=== PATIENT | female | born 1945 | race African-American/Black ===

== ENCOUNTER 2017-10-19 21:10 | Inpatient (IN) | payer MEDICARE, MEDICAID ==
[~2017-10-19] VITALS: Ht 170.2 cm; Wt 104.8 kg
[~2017-10-19 21:10] MED LIST: ACET-2178 PO; ALBU6.7H INH; ASPI-1159 PO; BENA40TA9 PO; ESOM40CA PO; FURO-151 PO; GABA-531 PO; METO25TA6 PO; MONT10TA24 PO; NIFE30TA8 PO; SPIR25TA6 PO
[2017-10-19] MEDS ORDERED: PANTOPRAZOLE SODIUM 40 MG/VIAL IV STA (21:50)
[2017-10-19] MEDS ORDERED: FAMOTIDINE 20MG/2ML VIAL IV STA (21:50)
[2017-10-19] MEDS ORDERED: OCTREOTIDE ACETATE 50 MCG/ML 1ML IV STA (21:50)
[2017-10-19 23:10] LABS: BASOPHILS % 0.6 % (0.0-2.0); EOSINOPHILS % 0.5 % (0.0-5.0); HEMATOCRIT. 33.4 % (36.0-48.0); HEMOGLOBIN. 11.2 g/dL (12.0-16.0); LYMPHOCYTES % 20.4 % (20.0-50.0); MEAN CORPUSCULAR HEMOGLOBIN 34.1 pg (28.0-32.0); MEAN CORPUSCULAR VOLUME 101.8 fL (81.0-99.0); MEAN PLATELET VOLUME 8.2 fl (7.4-10.4); MONOCYTES % 11.9 % (2.0-8.0); NEUTROPHILS % 66.6 % (40.0-76.0); PLATELET 289 x1000/uL (130-400); RED BLOOD CELL COUNT 3.28 mill/uL (4.2-5.4); RED CELL DISTRIBUTION WIDTH 14.8 % (11.6-14.6)
[2017-10-19 23:16] LABS: CHLORIDE 100 mEq/L (98-107); INR 1.1
[2017-10-20 07:10] LABS: CLARITY URINE CLOUDY (CLEAR); COLOR URINE YELLOW (YELLOW); KETONES URINE TRACE (NEGATIVE); LEUKOCYTE ESTERASE URINE 2+ (NEGATIVE); NITRITE URINE NEGATIVE (NEGATIVE); OCCULT BLOOD URINE NEGATIVE (NEGATIVE); PROTEIN URINE NEGATIVE (NEGATIVE); SPECIFIC GRAVITY URINE 1.021 (1.005-1.030); UROBILINOGEN URINE 0.2 E.U./dL (0.2-1.0)
[2017-10-20 08:30] VITALS: BP 150/90
[2017-10-20] MEDS ORDERED: MORPHINE SULFATE 4 MG/ML CPJ (NOT FOR IM USE) IV PRN (11:00)
[2017-10-20] MEDS ORDERED: PANTOPRAZOLE SODIUM 40 MG/VIAL IV SCH (11:00)
[2017-10-20 12:28] LABS: HEMATOCRIT 35.7 % (36.0-48.0); HEMOGLOBIN 11.9 g/dL (12.0-16.0); MEAN CORPUSCULAR HEMOGLOBIN 34.1 pg (28.0-32.0); MEAN CORPUSCULAR VOLUME 102.5 fL (81.0-99.0); PLATELET 288 x1000/uL (130-400); RED BLOOD CELL COUNT 3.48 mill/uL (4.2-5.4); RED CELL DISTRIBUTION WIDTH 14.7 % (11.6-14.6)
[2017-10-20 12:53] LABS: CHLORIDE 101 mEq/L (98-107)
[2017-10-20] MEDS ORDERED: ONDANSETRON HCL 4MG/2ML INJ IV PRN (13:45)
[2017-10-20] MEDS ORDERED: ACETAMINOPHEN 500MG TABLET PO PRN (15:15)
[2017-10-20] MEDS ORDERED: ALBUTEROL (0.083%) 2.5MG/3ML NEB INH PRN (15:15)
[2017-10-20 16:00] VITALS: BP 125/83
[2017-10-20] MEDS: MONTELUKAST SODIUM 10MG TABLET PO SCH (17:06)
[2017-10-20] MEDS: NIFEDIPINE XL 60MG TAB PO SCH ×2 (17:06→21:14)
[2017-10-20] MEDS ORDERED: FUROSEMIDE 40MG TABLET PO SCH (17:15)
[2017-10-20] MEDS: SUCRALFATE 1G TABLET PO SCH ×2 (19:18→21:13)
[2017-10-20 20:24] VITALS: BP 150/77
[2017-10-20] MEDS: METOPROLOL TARTRATE 25MG TABLET PO SCH (21:14)
[2017-10-20] MEDS: PANTOPRAZOLE SODIUM 40 MG/VIAL IV SCH (21:15)
[2017-10-21] VITALS (7 sets, daily range): BP systolic 98–135; BP diastolic 66–85
[2017-10-21] MEDS: LEVOFLOXACIN 500MG PREMIX 100 ML IV SCH ×2 (05:34→22:23)
[2017-10-21 07:03] LABS: HEMOGLOBIN. 11.1 g/dL (12.0-16.0); MEAN CORPUSCULAR HEMOGLOBIN 33.4 pg (28.0-32.0); MEAN PLATELET VOLUME 7.9 fl (7.4-10.4); PLATELET 289 x1000/uL (130-400); RED BLOOD CELL COUNT 3.33 mill/uL (4.2-5.4)
[2017-10-21 07:44] LABS: TOTAL IRON BINDING CAPACITY 221 ug/dL (250-450)
[2017-10-21] MEDS: SUCRALFATE 1G TABLET PO SCH ×4 (07:48→20:58)
[2017-10-21] MEDS: PANTOPRAZOLE SODIUM 40 MG/VIAL IV SCH ×2 (09:06→20:59)
[2017-10-21] MEDS: GABAPENTIN 300MG CAPSULE PO SCH (09:07)
[2017-10-21] MEDS: SPIRONOLACTONE 25MG TABLET PO SCH (09:07)
[2017-10-21] MEDS: METOPROLOL TARTRATE 25MG TABLET PO SCH ×2 (09:08→20:59)
[2017-10-21] MEDS: ASPIRIN 81MG EC TABLET PO SCH (09:08)
[2017-10-21] MEDS: NIFEDIPINE XL 60MG TAB PO SCH ×2 (09:08→21:06)
[2017-10-21] MEDS ORDERED: MIDAZOLAM HCL 5 MG/5 ML VIAL ONE (11:45)
[2017-10-21] MEDS ORDERED: FENTANYL CITRATE/PF 50MCG/ML 2ML VIAL ONE (11:45)
[2017-10-21 15:30] LABS: ATYPICAL LYMPHOCYTES 1; PLATELET ESTIMATE NORMAL
[2017-10-21] MEDS: MONTELUKAST SODIUM 10MG TABLET PO SCH (17:05)
[2017-10-22 04:00] VITALS: BP 126/69
[2017-10-22 05:33] LABS: HEMOGLOBIN. 11.4 g/dL (12.0-16.0); MEAN CORPUSCULAR HEMOGLOBIN 34.1 pg (28.0-32.0); MEAN CORPUSCULAR VOLUME 102.3 fL (81.0-99.0); MEAN PLATELET VOLUME 8.3 fl (7.4-10.4); PLATELET 285 x1000/uL (130-400); RED BLOOD CELL COUNT 3.33 mill/uL (4.2-5.4); RED CELL DISTRIBUTION WIDTH 14.4 % (11.6-14.6)
[2017-10-22 07:58] LABS: PLATELET ESTIMATE NORMAL
[2017-10-22 08:00] VITALS: BP 125/72
[2017-10-22] MEDS: SUCRALFATE 1G TABLET PO SCH ×3 (08:40→17:28)
[2017-10-22] MEDS: ASPIRIN 81MG EC TABLET PO SCH (08:40)
[2017-10-22] MEDS: NIFEDIPINE XL 60MG TAB PO SCH (08:40)
[2017-10-22] MEDS: METOPROLOL TARTRATE 25MG TABLET PO SCH (08:41)
[2017-10-22] MEDS: SPIRONOLACTONE 25MG TABLET PO SCH (08:41)
[2017-10-22] MEDS: PANTOPRAZOLE SODIUM 40 MG/VIAL IV SCH (08:41)
[2017-10-22] MEDS: GABAPENTIN 300MG CAPSULE PO SCH (08:43)
[2017-10-22 12:00] VITALS: BP 136/80
[2017-10-22 16:00] VITALS: BP 102/56
[2017-10-22] MEDS: MONTELUKAST SODIUM 10MG TABLET PO SCH (17:28)
[2017-10-22 18:15] VITALS: BP 102/56
== END 2017-10-22 20:10 | DRG 378 ==
LOC: ER 21:10 → EDBEDREQ 23:47 → EDBEDREQTM 23:47 → 7WST 10-20 07:43 → ENRESERV 10-20 07:43
PROVIDERS: ADMIT Internal Medicine Nephrology; ATTEND Internal Medicine Nephrology
PROC: 0DB58ZX Excision of Esophagus, Via Natural or Artificial Opening Endoscopic, Diagnostic (ICD-10-PCS; principal; 2017-10-21)
PROC: 0DB68ZX Excision of Stomach, Via Natural or Artificial Opening Endoscopic, Diagnostic (ICD-10-PCS; 2017-10-21)
DX: K29.61 Other gastritis with bleeding (principal); N39.0 Urinary tract infection, site not specified; I11.0 Hypertensive heart disease with heart failure; I50.9 Heart failure, unspecified; D53.9 Nutritional anemia, unspecified; K21.0 Gastro-esophageal reflux disease with esophagitis; K52.9 Noninfective gastroenteritis and colitis, unspecified; D50.9 Iron deficiency anemia, unspecified; I25.10 Atherosclerotic heart disease of native coronary artery without angina pectoris; Z79.82 Long term (current) use of aspirin; Z86.73 Personal history of transient ischemic attack (TIA), and cerebral infarction without residual deficits; Z90.710 Acquired absence of both cervix and uterus
CPT/HCPCS: 36415; 71045; 74176; 80048; 83540; 83550; 83605; 84484; 85027; 85044; 86850; 86900; 87077; 87186; 88305; 88312; 88313; 96374; 96375; 99285; C9113; J1956; J2250; J2354; J3010; J3490; J7050

== ENCOUNTER → 2020-04-23 | Outpatient (CLI) | payer MEDICARE, MEDICAID ==
[~2020-04-23] MED LIST changes: -ACET-2178 PO; +ALBU18HF2 IH; -ALBU6.7H INH; +ALBU6.7H11 INH; -ASPI-1159 PO; +ASPI-1497 PO; +ATOR40TA70 PO; +CHLO25TA2 MT; +GLIM2TAB30 PO; +LOSA100T32 PO; +METF-414 PO; -MONT10TA24 PO; +MONT10TA26 PO; +SUCR1TAB MT; +TOPUD PO; +XALAO EACHEYE
== END | disposition home or self-care (01) ==
LOC: LAB 09:05
PROVIDERS: ATTEND Ophthalmology
DX: Z01.818 Encounter for other preprocedural examination (principal); Z11.59 Encounter for screening for other viral diseases
CPT/HCPCS: C9803; U0003

== ENCOUNTER 2020-04-27 05:23 | Day surgery (SDC) | payer MEDICARE, MEDICAID ==
[~2020-04-27] VITALS: Ht 170.2 cm; Wt 108.9 kg
[~2020-04-27 05:23] MED LIST changes: +PHENYLEPHRINE HCL 10% OPHTH DROPS 5ML RIGHTEYE ONE
[2020-04-27] MEDS ORDERED: SODIUM CHLORIDE 0.9% 1,000 ML IV SCH (05:30)
[2020-04-27] MEDS ORDERED: CYCLOPENTOLATE HCL 1% OPHTH DROPS 2ML RIGHTEYE ONE (05:30)
[2020-04-27] MEDS ORDERED: TROPICAMIDE 1% OPHTH DROPS 15ML RIGHTEYE ONE (06:00)
[2020-04-27] MEDS ORDERED: BALANCED SALT IRRIG SOLN COMB1 500ML OP ONE (06:30)
[2020-04-27 07:02] LABS: BASOPHILS % 0.9 % (0.0-2.0); EOSINOPHILS % 0.9 % (0.0-5.0); HEMATOCRIT. 36.6 % (36.0-48.0); HEMOGLOBIN. 12.3 g/dL (12.0-16.0); MEAN CORPUSCULAR HEMOGLOBIN 33.2 pg (28.0-32.0); MEAN CORPUSCULAR VOLUME 98.7 fL (81.0-99.0); MEAN PLATELET VOLUME 8.7 fl (7.4-10.4); MONOCYTES % 9.9 % (2.0-8.0); NEUTROPHILS % 64.3 % (40.0-76.0); PLATELET 277 x1000/uL (130-400); RED BLOOD CELL COUNT 3.71 mill/uL (4.2-5.4); RED CELL DISTRIBUTION WIDTH 13.7 % (11.6-14.6)
[2020-04-27 07:07] LABS: CHLORIDE 98 mEq/L (98-107)
[2020-04-27] MEDS ORDERED: HYALURONATE SODIUM 10 MG/ML 0.55ML SYRINGE IO ONE (07:23)
[2020-04-27] MEDS ORDERED: PHENYLEPHRINE HCL 10% OPHTH DROPS 5ML RIGHTEYE SCH (08:30)
[2020-04-27] MEDS ORDERED: PHENYLEPHRINE HCL 10% OPHTH DROPS 5ML RIGHTEYE ONE (08:30)
[2020-04-27] MEDS ORDERED: LIDOCAINE HCL 2%/EPINEPHRINE 1:100,000 20 ML VIAL INFIL ONE (09:04)
[2020-04-27] MEDS ORDERED: PHENYLEPHRINE HCL 10% OPHTH DROPS 5ML ONE (09:04)
[2020-04-27] MEDS ORDERED: CIPROFLOXACIN 0.3% OPHTH SOLN 2.5ML ONE (09:04)
[2020-04-27] MEDS ORDERED: BALANCED SALT IRRIG SOLN 15ML ONE (09:04)
[2020-04-27] MEDS ORDERED: NEO/POLYMYX B SULF/DEXAMETH OPHTH OINT 3.5GM ONE (09:04)
[2020-04-27] MEDS ORDERED: TROPICAMIDE 1% OPHTH DROPS 15ML ONE (09:04)
[2020-04-27] MEDS ORDERED: TETRACAINE 0.5% OPHTH DROPS 4ML ONE (09:04)
[2020-04-27] MEDS ORDERED: CYCLOPENTOLATE HCL 1% OPHTH DROPS 2ML ONE (09:04)
[2020-04-27] MEDS ORDERED: PREDNISOLONE ACETATE 1% OPHTH DROPS 5ML ONE (09:04)
[2020-04-27] MEDS ORDERED: POTASSIUM CHLORIDE 20MEQ TABLET SR PO NR (09:15)
== END 2020-04-27 10:10 | disposition home or self-care (01) ==
LOC: OR 05:23
PROVIDERS: ATTEND Ophthalmology
DX: E11.36 Type 2 diabetes mellitus with diabetic cataract (principal); H25.89 Other age-related cataract; E11.622 Type 2 diabetes mellitus with other skin ulcer; I11.0 Hypertensive heart disease with heart failure; I50.9 Heart failure, unspecified; E66.9 Obesity, unspecified; Z79.82 Long term (current) use of aspirin; Z79.84 Long term (current) use of oral hypoglycemic drugs; Z79.899 Other long term (current) drug therapy; Z98.890 Other specified postprocedural states; Z91.013 Allergy to seafood; Z88.8 Allergy status to other drugs, medicaments and biological substances; Z68.37 Body mass index [BMI] 37.0-37.9, adult
CPT/HCPCS: 36415; 66984; 80048; 82962; 85025; J3490; V2632

== ENCOUNTER → 2020-06-18 | Outpatient (CLI) | payer MEDICARE, MEDICAID ==
[~2020-06-18] MED LIST changes: -PHENYLEPHRINE HCL 10% OPHTH DROPS 5ML RIGHTEYE ONE
== END | disposition home or self-care (01) ==
LOC: LAB 09:51
PROVIDERS: ATTEND Ophthalmology
DX: Z01.812 Encounter for preprocedural laboratory examination (principal); Z20.828 Contact with and (suspected) exposure to other viral communicable diseases
CPT/HCPCS: C9803; U0003

== ENCOUNTER 2020-06-22 05:23 | Day surgery (SDC) | payer MEDICARE, MEDICAID ==
[~2020-06-22] VITALS: Ht 172.7 cm; Wt 104.3 kg
[2020-06-22] MEDS ORDERED: LIDOCAINE HCL 2%/EPINEPHRINE 1:100,000 20 ML VIAL INFIL ONE (06:00)
[2020-06-22] MEDS ORDERED: BUPIVACAINE HCL/PF 0.75% (7.5MG/ML) 10ML ONE (06:00)
[2020-06-22] MEDS ORDERED: PHENYLEPHRINE HCL 10% OPHTH DROPS 5ML LEFTEYE NR (06:00)
[2020-06-22] MEDS ORDERED: TROPICAMIDE 1% OPHTH DROPS 15ML ONE (06:00)
[2020-06-22] MEDS ORDERED: CYCLOPENTOLATE HCL 1% OPHTH DROPS 2ML ONE (06:00)
[2020-06-22] MEDS ORDERED: SODIUM CHLORIDE 0.9% 1,000 ML IV SCH (06:00)
[2020-06-22] MEDS ORDERED: TETRACAINE 0.5% OPHTH DROPS 4ML ONE (06:00)
[2020-06-22] MEDS ORDERED: CYCLOPENTOLATE HCL 1% OPHTH DROPS 2ML LEFTEYE NR (06:00)
[2020-06-22] MEDS ORDERED: LIDOCAINE HCL/PF 2% 20 MG/ML 10ML VIAL ONE (06:00)
[2020-06-22] MEDS ORDERED: TROPICAMIDE 1% OPHTH DROPS 15ML LEFTEYE NR (06:00)
[2020-06-22] MEDS ORDERED: BALANCED SALT IRRIG SOLN 15ML ONE (06:00)
[2020-06-22] MEDS ORDERED: PREDNISOLONE ACETATE 1% OPHTH DROPS 5ML ONE (06:00)
[2020-06-22] MEDS ORDERED: CIPROFLOXACIN 0.3% OPHTH SOLN 2.5ML ONE (06:00)
[2020-06-22] MEDS ORDERED: PHENYLEPHRINE HCL 10% OPHTH DROPS 5ML ONE (06:00)
[2020-06-22] MEDS ORDERED: BALANCED SALT IRRIG SOLN COMB1 500ML OP ONE (06:45)
[2020-06-22] MEDS ORDERED: HYALURONATE SODIUM 10 MG/ML 0.55ML SYRINGE IO ONE (07:29)
[2020-06-22] MEDS ORDERED: PROPOFOL 10MG/ML 100ML 0 ML IV ONE (07:36)
[2020-06-22] MEDS ORDERED: LIDOCAINE HCL/PF 2% 20MG/ML 5 ML/VIAL ONE (07:38)
[2020-06-22] MEDS ORDERED: PROPOFOL 200MG/20ML VIAL IV ONE (07:38)
[2020-06-22] MEDS ORDERED: TRYPAN BLUE 0.5 ML DISP.SYRIN IO ONE (08:24)
== END 2020-06-22 10:30 | disposition home or self-care (01) ==
LOC: OR 05:23
PROVIDERS: ATTEND Ophthalmology
DX: E11.36 Type 2 diabetes mellitus with diabetic cataract (principal); H25.89 Other age-related cataract; I50.9 Heart failure, unspecified; K21.9 Gastro-esophageal reflux disease without esophagitis; J45.909 Unspecified asthma, uncomplicated; Z79.82 Long term (current) use of aspirin; Z79.84 Long term (current) use of oral hypoglycemic drugs; Z79.899 Other long term (current) drug therapy; Z91.013 Allergy to seafood; Z88.8 Allergy status to other drugs, medicaments and biological substances; Z98.890 Other specified postprocedural states
CPT/HCPCS: 66984; 82962; J2704; J3490; Q9957; V2632